=== PATIENT | female | born 2000 | race Caucasian/White ===

== ENCOUNTER 2022-11-17 07:31 | Emergency (ER) | payer BC, SELFPAY ==
[2022-11-17] VITALS (22 sets, daily range): BP systolic 111–133; BP diastolic 63–86; PULSE 61–92; RESP 13–23; TEMP 36.9; O2SAT 97–100
--- NOTE | ~2022-11-17 | CT_ITS ---
EXAMINATION: CT abdomen pelvis w con DATE: 11/17/2022 09:25 INDICATION: Right lower quadrant pain TECHNIQUE: Computed tomography (CT) of the abdomen and pelvis was performed with 100 cc of 350 intrav enous contrast. The dose-length product was 1219.81 mGy-cm. Automated exposure control and iterative reconstruction technique were employed. COMPARISON: None. FINDINGS: Lung bases are unremarkable. Heart size normal. No significant pleural or pericardial effus ion. No significant vascular abnormality. No lymphadenopathy. There is a small fat-containing umbilic al hernia. The liver, spleen, pancreas, adrenal glands and left kidney are unremarkable. Small subcen timeter hypodensity of the right kidney, most likely benign. Gallbladder is present. Nonobstructive b owel gas pattern. Normal appendix. Colonic diverticulosis without evidence for diverticulitis. No lym phadenopathy. No abnormal pelvic masses or fluid collections. There is an accessory splenule. No free air or free fluid. IMPRESSION: 1. No acute abdominal abnormality. Reviewed, dictated and finalized at location B.
--- NOTE | ~2022-11-17 | US_ITS ---
EXAMINATION: US pelvic complete DATE: 11/17/2022 11:13 INDICATION: Right-sided abdominal pain Comparison:No prior studies for comparison. TECHNIQUE: Multiple transabdominal sonographic images of the pelvis performed. FINDINGS: The uterus measures 6.7 x 2.8 x 4.1 cm. The endometrial complex measures 5 mm. The right ovary measures 3.1 x 1.8 x 1.4 cm and the left ovary measures 2.5 x 1.4 x 2.9 cm. There ar e small follicles in each ovary. Normal doppler signal in both ovaries. There is no free fluid in the pelvis. There are no abnormal masses seen on either side. IMPRESSION: 1. Unremarkable pelvic ultrasound. Reviewed, dictated and finalized at location B.
[2022-11-17 08:02] LABS: Basophils Absolute Auto 0.1 K/mm3 (0.0-0.1); Basophils Percent Auto 0.6 % (0.2-1.2); Eosinophils Absolute Auto 0.3 K/mm3 (0-0.3); Eosinophils Percent Auto 2.6 % (0-4.4); Hematocrit 42.3 % (37.0-47.0); Hemoglobin 13.8 g/dL (12.0-15.0); Immature Granulocyte Absolute 0.03 K/mm3 (0.00-0.031); Immature Granulocyte Percent A 0.2 % (0-0.5); Lymphocytes Absolute Auto 2.47 K/mm3 (0.9-3.2); Lymphocytes Percent Auto 20.1 % (18.3-44.2); Mean Corpuscular HGB Conc 32.6 g/dl (32-36); Mean Corpuscular Hemoglobin 27.8 pg (26-34); Mean Corpuscular Volume 85.1 fl (80-100); Mean Platelet Volume 9.2 fl (7.4-10.4); Monocytes Absolute Auto 0.6 K/mm3 (0.1-0.6); Monocytes Percent Auto 4.7 % (2.6-8.5); Neutrophils Absolute Auto 8.8 K/mm3 (1.3-6.7); Neutrophils Percent Auto 71.8 % (45.5-73.1); Platelet Count Result 355 k/mm3 (150-375); Red Blood Count 4.97 M/mm3 (4.2-5.4); Red Cell Distribution Width 13.3 % (11.5-14.5); White Blood Count 12.3 K/mm3 (4.5-10.0)
[2022-11-17 08:11] LABS: Alanine Aminotransferase 20 U/L (6-35); Albumin Level 4.1 g/dL (3.5-5.1); Alkaline Phosphatase 74 U/L (38-126); Anion Gap 5 mmol/L (8-16); Aspartate Amino Transferase 19 U/L (14-36); Bilirubin,Total 0.4 mg/dL (0.2-1.3); Blood Urea Nitrogen 9 mg/dL (7-17); Calcium 8.5 mg/dL (8.4-10.2); Carbon Dioxide 26 mmol/L (22-30); Chloride 106 mmol/L (98-107); Estimated Glomerular Filt Rate > 60; Glucose 111 mg/dL (65-110); Lipase 33 U/L (23-300); Sodium 137 mmol/L (137-145)
[2022-11-17 08:42] LABS: Appearance Urine Cloudy (Clear); Bacteria Urine None Seen /hpf; Bilirubin Urine Negative (Negative); Blood Urine 3+ (Negative); Color Urine Dark Yellow (Yellow); Glucose Urine UA Negative (Negative); Ketones Urine Trace mg/dL (Negative); Leukocyte Esterase Ur Trace LEU/UL (Negative); Need Manual Microscopic Reviewed; Nitrate Urine Negative (Negative); Protein Urine 1+ mg/dL (Negative); RBC Urine >100 /hpf (0-2); Specific Grav Ur 1.026 (1.001-1.035); Squamous Epithelial Cell Urine Many /hpf (Few); pH Urine 6.5 (5.0-9.0)
--- NOTE | 2022-11-17 09:04 | ED.GENADULT ---
HPI - General Adult General Chief complaint: Abdominal Pain Stated complaint: right sided abd pain Time Seen by Provider: 11/17/22 07:47 History of Present Illness HPI narrative: 22-year-old female presented to the emergency department for evaluation of nausea vomiting and right lower quadrant abdominal pain. Patient denies any pain with urination. Patient states last night she was having lots of cold sweats. Patient did finish her menstrual cycle approximate 2 weeks ago. Patient has no prior history of gallbladder disease or of ovarian cyst. Patient denies any prior history of abdominal surgeries. Related Data Allergies Allergy/AdvReac Type Severity Reaction Status Date / Time No Known Allergies Allergy Verified 11/17/22 08:21 Review of Systems Review of Systems: All systems reviewed & are unremarkable except as noted in HPI and below Exam Narrative: APPEARANCE: Well appearing, no pain, no distress, well-nourished. HEAD: normocephalic, atraumatic. EYES: PERRLA/EOMI, conjunctivae clear. NOSE: Normal no drainage NECK: Supple. No adenopathy, no masses. RESPIRATORY: Airway patent, respirations nonlabored. Clear to auscultation bilaterally, no rales, rhonchi, wheezing. CARDIOVASCULAR: Regular rate and rhythm without murmurs rubs or gallops. ABDOMINAL: Soft, right-sided abdominal tenderness to palpation more significant in right lower quadrant MUSCULOSKELETAL: Moves all extremities. Strength/ROM intact, No edema, No calf tenderness. NEURO: Alert. Cranial nerves II through XII intact. Grossly intact SKIN: Warm, dry. Normal Color Course Course Emergency Course: 22-year-old female with right lower quadrant pain. Patient does have a leukocytosis of 12.3. Patient's CMP shows no significant abnormality. UA is concerning for possible infection, urine culture is pending. UA is nitrate negative and has only 6-10 white blood cells. No bacteria seen. CT scan was ordered to rule out acute appendicitis. CT was negative. Patient was still having some right lower quadrant pain so ultrasound was ordered to rule out for ovarian torsion. Ultrasound was negative. Patient was treated for urinary tract infection. Patient was treated with an IV dose of Rocephin in the ED and discharged home with Keflex. Patient family were updated on the results of the work-up and plan for treatment. All questions and concerns were addressed. Vital Signs Vital signs: Vital Signs Blood Pressure 130/86 11/17/22 07:41 Temperature 98.4 F 11/17/22 08:17 Pulse Rate 66 11/17/22 11:45 Respiratory Rate 16 11/17/22 11:45 Blood Pressure 112/71 11/17/22 12:25 Pulse Oximetry 99 11/17/22 11:45 Oxygen Delivery Room Air 11/17/22 08:17 Medical Decision Making Differential Diagnosis Differential Diagnosis: Appendicitis, colitis, urinary tract infection, biliary colic, renal colic, ovarian torsion Vital Signs Vital Signs: Vital Signs Blood Pressure 130/86 11/17/22 07:41 Temperature 98.4 F 11/17/22 08:17 Pulse Rate 66 11/17/22 11:45 Respiratory Rate 16 11/17/22 11:45 Blood Pressure 112/71 11/17/22 12:25 Pulse Oximetry 99 11/17/22 11:45 Oxygen Delivery Room Air 11/17/22 08:17 Lab Data Lab results reviewed: Yes I reviewed the patient's lab results. 11/17/22 07:57 11/17/22 07:57 Labs: Lab Results 11/17/22 11/17/22 Range/Units 07:57 08:20 WBC 12.3 H (4.5-10.0) K/mm3 RBC 4.97 (4.2-5.4) M/mm3 Hgb 13.8 (12.0-15.0) g/dL Hct 42.3 (37.0-47.0) % MCV 85.1 (80-100) fl MCH 27.8 (26-34) pg MCHC 32.6 (32-36) g/dl RDW 13.3 (11.5-14.5) % Plt Count 355 (150-375) k/mm3 MPV 9.2 (7.4-10.4) fl Immature Gran % (Auto) 0.2 (0-0.5) % Neut % (Auto) 71.8 (45.5-73.1) % Lymph % (Auto) 20.1 (18.3-44.2) % Walsh % (Auto) 4.7 (2.6-8.5) % Eos % (Auto) 2.6 (0-4.4) % Baso % (Auto) 0.6 (0.2-1.2) % Lymph # (Auto) 2.47 (
[2022-11-17 09:12] LABS: Add Urine Microscopic? YES
[2022-11-17] MEDS: ONDANSETRON INJ 4 MG/2 ML VIAL IV PUSH (09:31)
[2022-11-17] MEDS: HYDROmorphone HCL INJ (*CRX) 1 MG/ML SYR 0.5 MG IV PUSH (09:31)
[2022-11-17] MEDS: SODIUM CHLORIDE 0.9% IV 1,000 ML 999 ML IV CONT (09:32)
--- NOTE | 2022-11-17 10:30 | PC.NURSE ---
patient continues to be nauseated and refuses to do US at this time. provider aware and new orders received
[2022-11-17] MEDS: METOCLOPRAMIDE HCL INJ 10 MG/2 ML VIAL IV PUSH (10:40)
[2022-11-17] MEDS: PHENAZOPYRIDINE HCL 100 MG TABLET 200 MG PO (12:05)
== END 2022-11-17 12:20 | disposition home or self-care (01) ==
PROVIDERS: Emergency Provider Emergency Medicine
DX: N30.01 Acute cystitis with hematuria (principal); R10.31 Right lower quadrant pain
CPT/HCPCS: 36415; 74177; 76856; 80053; 81001; 81025; 83690; 85025; 87086; 87088; 96361; 96365; 96375; 99284; A9270; J0696; J1170; J2405; J2765; J7030; Q9967